=== PATIENT | male | born 1945 | race Hispanic/Latino ===

== ENCOUNTER 2020-10-12 10:47 | Inpatient (IN) | payer MEDICARE ==
[~2020-10-12] VITALS: Ht 167.6 cm; Wt 64.3 kg
[2020-10-12 11:03] LABS: ABG BASE EXCESS -1.4 mmol/L (-2.0-3.0); ABG HCO3 23.2 mmol/L (21.0-28.0); ABG OXYGEN SATURATION 93.6 % (95.0-99.0); ABG PCO2 39 mmHg (35-48)
[2020-10-12 11:10] LABS: BASOPHILS % (AUTO) 0.2 % (0.0-5.0); EOSINOPHILS % (AUTO) 0.3 % (0.0-8.0); HEMATOCRIT 39.1 % (42-54); LYMPHOCYTES % (AUTO) 6.8 % (21.0-51.0); MEAN CORPUSCULAR HEMOGLOBIN 25.8 pg (27.0-33.0); MEAN CORPUSCULAR HGB CONC 31.2 g/dL (32.0-36.0); MEAN CORPUSCULAR VOLUME 82.7 fL (79-99); MONOCYTES % (AUTO) 5.4 % (3.0-13.0); PLATELET COUNT (AUTO) 165 K/uL (130-400); RED BLOOD CELL COUNT(AUTO) 4.73 MIL/uL (4.50-6.20); RED CELL DISTRIBUTION WIDTH 14.6 % (11.0-15.5); WHITE BLOOD COUNT (AUTO) 13.2 K/uL (4.8-10.8)
[2020-10-12 11:18] LABS: CREATININE 0.7 mg/dL (0.5-1.5); POTASSIUM 3.9 mmol/L (3.5-5.1)
[2020-10-12 11:20] LABS: APPEARANCE,URINE Cloudy (CLEAR); BILIRUBIN,URINE Negative (NEGATIVE); COLOR,URINE Dark Yellow (YELLOW); GLUCOSE, URINE (UA) Negative (NEGATIVE); KETONES,URINE 15 mg/dL (NEGATIVE); LEUKOCYTE ESTERASE ,URINE Moderate (NEGATIVE); NITRATE,URINE Negative (NEGATIVE); OCCULT BLOOD,URINE Small (NEGATIVE); PROTEIN,URINE POS 1+ mg/dL (NEGATIVE)
[2020-10-12 11:24] LABS: ALBUMIN 2.4 g/dL (3.5-5.0); BILIRUBIN,TOTAL 0.8 mg/dL (0.2-1.0); TOTAL PROTEIN, SERUM 6.4 g/dL (6.0-8.3)
[2020-10-12 11:33] LABS: B-TYPE NATRIURETIC PEPTIDE 1410 pg/mL (0-100)
[2020-10-12 11:51] LABS: BACTERIA,URINE Moderate /HPF (None Seen)
[2020-10-12] MEDS ORDERED: FUROSEMIDE 10 MG/ML 4ML VIAL ONE (12:26)
[2020-10-12] MEDS: ENOXAPARIN SODIUM 30 MG/0.3 ML SQ SCH (12:43)
[2020-10-12] MEDS ORDERED: ONDANSETRON HCL 4 MG/2 ML VIAL IVP PRN (12:45)
[2020-10-12] MEDS: SODIUM CHLORIDE 0.9% 1000ML 1,000 ML IV SCH (12:45)
[2020-10-12] MEDS ORDERED: SODIUM CHLORIDE 0.9% 1000ML 1,000 ML IV ONE (13:13)
[2020-10-12] MEDS: CEFTRIAXONE SODIUM 1 GM IVP SCH (15:45)
[2020-10-12] MEDS: FUROSEMIDE 10 MG/ML 2ML VIAL IV SCH (15:45)
[2020-10-12 16:21] LABS: TROPONIN I 0.33 ng/mL (0.00-0.06)
[2020-10-12] MEDS ORDERED: CEFTRIAXONE SODIUM 1 GM ONE (19:01)
[2020-10-12 20:00] VITALS: BP 140/48
[2020-10-12 21:51] LABS: TROPONIN I 0.34 ng/mL (0.00-0.06)
[2020-10-13] VITALS: BP 140/69
[2020-10-13 02:11] LABS: BASOPHILS % (AUTO) 0.3 % (0.0-5.0); EOSINOPHILS % (AUTO) 0.8 % (0.0-8.0); HEMATOCRIT 36.1 % (42-54); LYMPHOCYTES % (AUTO) 9.6 % (21.0-51.0); MEAN CORPUSCULAR HEMOGLOBIN 25.7 pg (27.0-33.0); MEAN CORPUSCULAR HGB CONC 31.3 g/dL (32.0-36.0); MEAN CORPUSCULAR VOLUME 82.2 fL (79-99); MONOCYTES % (AUTO) 5.6 % (3.0-13.0); NEUTROPHILS % (AUTO) 83.4 % (40.0-77.0); PLATELET COUNT (AUTO) 144 K/uL (130-400); RED BLOOD CELL COUNT(AUTO) 4.39 MIL/uL (4.50-6.20); RED CELL DISTRIBUTION WIDTH 14.6 % (11.0-15.5)
[2020-10-13] MEDS: AZITHROMYCIN 500MG+NS 250ML 250 ML IV SCH (02:16)
[2020-10-13 02:20] LABS: CREATININE 0.6 mg/dL (0.5-1.5); POTASSIUM 3.8 mmol/L (3.5-5.1)
[2020-10-13 04:00] VITALS: BP 141/51
[2020-10-13] MEDS: FUROSEMIDE 10 MG/ML 2ML VIAL IV SCH ×2 (04:06→20:14)
[2020-10-13] MEDS: ACETAMINOPHEN 325 MG TAB PO PRN ×3 (04:10→20:52)
[2020-10-13 08:00] VITALS: BP 119/45
[2020-10-13] MEDS: ENOXAPARIN SODIUM 30 MG/0.3 ML SQ SCH (09:21)
[2020-10-13] MEDS: SODIUM CHLORIDE 0.9% 1000ML 1,000 ML IV SCH ×2 (10:06→20:15)
[2020-10-13 12:00] VITALS: BP 155/46
[2020-10-13] MEDS ORDERED: TAMS-1 PO (15:15)
[2020-10-13] MEDS ORDERED: LEVO100C4 PO (15:25)
[2020-10-13] MEDS ORDERED: CLOP75TA32 PO (15:25)
[2020-10-13] MEDS ORDERED: INSU200I4 SQ (15:25)
[2020-10-13] MEDS ORDERED: ATOR40TA69 PO ×2 (15:25)
[2020-10-13] MEDS ORDERED: CARV6.25 PO (15:25)
[2020-10-13] MEDS ORDERED: IOHEXOL 350 MG/ML 100ML INFUS..BTL IV ONE (15:37)
[2020-10-13 16:00] VITALS: BP 166/74
[2020-10-13 20:00] VITALS: BP 146/68
[2020-10-13] MEDS: CEFTRIAXONE SODIUM 1 GM IVP SCH (20:14)
[2020-10-13] MEDS: ATORVASTATIN CALCIUM 40 MG TABLET PO SCH (20:40)
[2020-10-13] MEDS: ERYTHROMYCIN BASE 0.5% OPHTH OINT 1 GM TUBE OU SCH (20:40)
[2020-10-13] MEDS: CARVEDILOL 6.25 MG TABLET PO SCH (20:40)
[2020-10-14] MEDS: IPRATROPIUM/ALBUTEROL SULFATE 3 ML SOLUTION IH SCH ×5 (00:35→23:29)
[2020-10-14] MEDS: AZITHROMYCIN 500MG+NS 250ML 250 ML IV SCH (01:41)
[2020-10-14] MEDS: FUROSEMIDE 10 MG/ML 2ML VIAL IV SCH ×2 (03:43→15:14)
[2020-10-14 04:00] VITALS: BP 141/63
[2020-10-14 05:08] LABS: BASOPHILS % (AUTO) 0.2 % (0.0-5.0); EOSINOPHILS % (AUTO) 1.7 % (0.0-8.0); HEMATOCRIT 31.1 % (42-54); LYMPHOCYTES % (AUTO) 9.4 % (21.0-51.0); MEAN CORPUSCULAR HEMOGLOBIN 25.6 pg (27.0-33.0); MEAN CORPUSCULAR HGB CONC 30.9 g/dL (32.0-36.0); MEAN CORPUSCULAR VOLUME 82.9 fL (79-99); MONOCYTES % (AUTO) 6.1 % (3.0-13.0); NEUTROPHILS % (AUTO) 82.2 % (40.0-77.0); PLATELET COUNT (AUTO) 117 K/uL (130-400); RED BLOOD CELL COUNT(AUTO) 3.75 MIL/uL (4.50-6.20); RED CELL DISTRIBUTION WIDTH 14.7 % (11.0-15.5); WHITE BLOOD COUNT (AUTO) 10.1 K/uL (4.8-10.8)
[2020-10-14 05:41] LABS: ALBUMIN 1.8 g/dL (3.5-5.0); BILIRUBIN,TOTAL 0.7 mg/dL (0.2-1.0); CREATININE 0.7 mg/dL (0.5-1.5); POTASSIUM 3.4 mmol/L (3.5-5.1)
[2020-10-14] MEDS: LEVOTHYROXINE 100 MCG TABLET PO SCH (06:35)
[2020-10-14] MEDS: BUDESONIDE 0.5 MG/2 ML INH IH SCH ×2 (07:23→18:39)
[2020-10-14 08:00] VITALS: BP 138/51
[2020-10-14] MEDS: ENOXAPARIN SODIUM 60 MG/0.6 ML SQ SCH (09:00)
[2020-10-14] MEDS: TAMSULOSIN HCL 0.4 MG CAP.ER.24H PO SCH (09:36)
[2020-10-14] MEDS: CARVEDILOL 6.25 MG TABLET PO SCH ×2 (09:37→22:50)
[2020-10-14] MEDS: ERYTHROMYCIN BASE 0.5% OPHTH OINT 1 GM TUBE OU SCH ×2 (09:38→22:50)
[2020-10-14 11:50] VITALS: BP 107/59
[2020-10-14] MEDS: CEFTRIAXONE SODIUM 1 GM IVP SCH (15:14)
[2020-10-14 16:50] VITALS: BP 135/85
[2020-10-14 19:31] LABS: APPEARANCE BODY FLUID CLEAR (CLEAR); COLOR,BODY FLUID YELLOW (LT YELLOW); SPECIMENTYPE,BODY FLUID PLEURAL; TOTAL VOLUME,BODY FLUID 19 mL
[2020-10-14 19:32] LABS: BODY FLUID RBC 22 /cu. mm.; BODY FLUID WBC 98 /cu. mm.
[2020-10-14 19:41] VITALS: BP 128/51
[2020-10-14 20:03] LABS: BF LYMPHOCYTE 24 %; BF OTHER CELLS 18
[2020-10-14] MEDS: ATORVASTATIN CALCIUM 40 MG TABLET PO SCH (22:49)
[2020-10-14 23:41] VITALS: BP 142/51
[2020-10-15] MEDS: AZITHROMYCIN 500MG+NS 250ML 250 ML IV SCH (02:13)
[2020-10-15 02:16] VITALS: BP 140/62
[2020-10-15] MEDS: FUROSEMIDE 10 MG/ML 2ML VIAL IV SCH (02:17)
[2020-10-15 04:00] VITALS: BP 138/49
[2020-10-15 06:07] LABS: BASOPHILS % (AUTO) 0.1 % (0.0-5.0); EOSINOPHILS % (AUTO) 0.5 % (0.0-8.0); HEMATOCRIT 33.4 % (42-54); LYMPHOCYTES % (AUTO) 7.5 % (21.0-51.0); MEAN CORPUSCULAR HEMOGLOBIN 24.9 pg (27.0-33.0); MEAN CORPUSCULAR HGB CONC 30.2 g/dL (32.0-36.0); MEAN CORPUSCULAR VOLUME 82.3 fL (79-99); MONOCYTES % (AUTO) 5.5 % (3.0-13.0); NEUTROPHILS % (AUTO) 85.9 % (40.0-77.0); PLATELET COUNT (AUTO) 122 K/uL (130-400); RED BLOOD CELL COUNT(AUTO) 4.06 MIL/uL (4.50-6.20); RED CELL DISTRIBUTION WIDTH 15.1 % (11.0-15.5)
[2020-10-15 06:11] LABS: B-TYPE NATRIURETIC PEPTIDE 1540 pg/mL (0-100)
[2020-10-15 06:22] LABS: BILIRUBIN,TOTAL 0.8 mg/dL (0.2-1.0); CREATININE 0.8 mg/dL (0.5-1.5); POTASSIUM 3.4 mmol/L (3.5-5.1); TOTAL PROTEIN, SERUM 5.6 g/dL (6.0-8.3)
[2020-10-15] MEDS: IPRATROPIUM/ALBUTEROL SULFATE 3 ML SOLUTION IH SCH ×3 (06:30→18:49)
[2020-10-15] MEDS: BUDESONIDE 0.5 MG/2 ML INH IH SCH ×2 (06:30→18:49)
[2020-10-15] MEDS: LEVOTHYROXINE 100 MCG TABLET PO SCH (06:47)
[2020-10-15 08:43] VITALS: BP 137/46
[2020-10-15] MEDS: ENOXAPARIN SODIUM 60 MG/0.6 ML SQ SCH (09:42)
[2020-10-15] MEDS: TAMSULOSIN HCL 0.4 MG CAP.ER.24H PO SCH (09:42)
[2020-10-15] MEDS: CARVEDILOL 6.25 MG TABLET PO SCH ×2 (09:42→21:08)
[2020-10-15] MEDS: ERYTHROMYCIN BASE 0.5% OPHTH OINT 1 GM TUBE OU SCH ×2 (09:43→21:09)
[2020-10-15 11:45] VITALS: BP 124/46
[2020-10-15 16:25] VITALS: BP 132/51
[2020-10-15] MEDS: SODIUM CHLORIDE 0.9% 1000ML 1,000 ML IV SCH (20:45)
[2020-10-15 21:08] VITALS: BP 132/51
[2020-10-15] MEDS: ATORVASTATIN CALCIUM 40 MG TABLET PO SCH (21:08)
== END 2020-10-15 21:38 | disposition home health service (06) | DRG 189 ==
LOC: EDH 10:47 → OBSVTOIN 10:48 → EDHIP 10:48 → 3AH 16:57
PROVIDERS: ADMIT Family Medicine; ATTEND Internal Medicine
PROC: 0W993ZZ Drainage of Right Pleural Cavity, Percutaneous Approach (ICD-10-PCS; principal; 2020-10-14)
DX: J96.01 Acute respiratory failure with hypoxia (principal); E43 Unspecified severe protein-calorie malnutrition; C78.7 Secondary malignant neoplasm of liver and intrahepatic bile duct; C25.9 Malignant neoplasm of pancreas, unspecified; N39.0 Urinary tract infection, site not specified; J90 Pleural effusion, not elsewhere classified; I82.439 Acute embolism and thrombosis of unspecified popliteal vein; C61 Malignant neoplasm of prostate; Z89.511 Acquired absence of right leg below knee; R53.81 Other malaise; I48.91 Unspecified atrial fibrillation; Z74.01 Bed confinement status; R62.7 Adult failure to thrive; Z20.822 Contact with and (suspected) exposure to COVID-19; Z66 Do not resuscitate; D69.6 Thrombocytopenia, unspecified; D64.9 Anemia, unspecified; E11.51 Type 2 diabetes mellitus with diabetic peripheral angiopathy without gangrene; E78.5 Hyperlipidemia, unspecified; I10 Essential (primary) hypertension; I25.10 Atherosclerotic heart disease of native coronary artery without angina pectoris; J44.9 Chronic obstructive pulmonary disease, unspecified; Z87.891 Personal history of nicotine dependence; Z95.1 Presence of aortocoronary bypass graft; Z88.5 Allergy status to narcotic agent; H10.9 Unspecified conjunctivitis; Z92.3 Personal history of irradiation; Z68.22 Body mass index [BMI] 22.0-22.9, adult
CPT/HCPCS: 32554; 36415; 36600; 71045; 74178; 80048; 80053; 81001; 82550; 82803; 82945; 83605; 83615; 83874; 83880; 83986; 84145; 84153; 84157; 84484; 85025; 85378; 86316; 87040; 87071; 87088; 87205; 87426; 89051; 92610; 93005; 93971; 94640; G0378; J0456; J0696; J1650; J1940; J7030; Q9967; U0003